=== PATIENT | male | born 1960 | race Caucasian/White ===

== ENCOUNTER 2018-06-25 16:35 | Emergency (ER) | END 2018-06-25 18:38 | disposition home or self-care (01) ==

== ENCOUNTER 2018-07-03 13:31 | Emergency (ER) | END 2018-07-03 14:12 | disposition home or self-care (01) ==

== ENCOUNTER 2018-09-06 17:46 | Emergency (ER) | payer SELFPAY ==
[~2018-09-06] VITALS: Ht 177.8 cm; Wt 104.5 kg
[~2018-09-06 17:46] MED LIST: CEPH-443 PO
[2018-09-06 18:00] VITALS: Ht 177.8 cm; Wt 104.5 kg
[2018-09-06] MEDS ORDERED: AZIT500T5 PO (20:16)
[2018-09-06 20:46] VITALS: BP 153/108; PULSE 98; RESP 16
--- NOTE | 2018-09-07 00:13 | ERD ---
ER Documentation Chief Complaint Chief Complaint SUDDEN NOSE BLEED X1 HOUR HPI 57-year-old man complains of right epistaxis times 1 hour, began spontaneously he denies trauma. Patient does have a history of obesity and hypertension and states he has had epistaxis in the past. Patient denies headache or blurry vision, no chest pain or shortness of breath, no dizziness or loss of consciousness. ROS All systems reviewed and are negative except as per history of present illness. Medications Home Meds Active Scripts Azithromycin* (Azithromycin*) 500 Mg Tablet, 500 MG PO DAILY, #3 TAB Prov:YESENIA PARTIDA MD 09/06/18 Discontinued Scripts Cephalexin* (Keflex*) 500 Mg Capsule, 500 MG PO QID for 7 Days, CAP Prov:EMILIE FREY PA-C 07/03/18 Allergies Allergies: Coded Allergies: No Known Allergy (Unverified , 07/03/18) PMhx/Soc Obesity, hypertension Medical and Surgical Hx: pt denies Surgical Hx History of Surgery: No Anesthesia Reaction: No Hx Neurological Disorder: No Hx Respiratory Disorders: No Hx Cardiac Disorders: Yes (HTN, HYPERCHOLESTEROLEMIA) Hx Psychiatric Problems: No Hx Miscellaneous Medical Probl: No Hx Alcohol Use: Yes (OCC) Hx Substance Use: No Hx Tobacco Use: No Smoking Status: Never smoker FmHx Family History: No diabetes Physical Exam Vitals Vital Signs Date Temp Pulse Resp B/P (MAP) Pulse Ox O2 O2 Flow FiO2 Time Delivery Rate 09/06/18 98 16 153/108 95 Room Air 20:46 (123) 09/06/18 99.0 98 20 177/100 97 Room Air 19:59 (125) 09/06/18 99.0 123 20 193/113 98 18:00 (139) Physical Exam GENERAL: Well-developed, well-nourished, well-hydrated, in no apparent distress, looks nontoxic in appearance HEENT: Moist mucous membranes, right naris epistaxis, pink conjunctive a NEURO: Alert and oriented 3, cranial nerves II through XII intact bilaterally, pupils equal round reactive to light, no focal deficits or facial asymmetry, sensation intact distally Strength 5/5 in upper and lower extremities bilaterally CARDIAC: Regular rate and rhythm, no murmurs rubs or gallops LUNGS: Clear bilaterally no wheezing crackles or stridor ABDOMEN: Soft nontender, no guarding, no rigidity, no rebound, no psoas sign no obturator sign. Normoactive bowel sounds SKIN: Warm and dry to touch, no abrasions, contusions, or hematomas, no lacerations, no ecchymosis, no target lesions, and without ulcers EXTREMITIES: No clubbing cyanosis or edema, calves are bilaterally symmetrical, no Homans sign, no popliteal cord sign. Distal pulses equal and bilateral PSYCH: Normal affect without agitation or irritability Result Diagram: 09/06/18192209/06/181922 Results 24 hrs Laboratory Tests Test 09/06/18 19:23 White Blood Count 8.3 10^3/ul Red Blood Count 5.25 10^6/ul Hemoglobin 15.7 g/dl Hematocrit 44.5 % Mean Corpuscular Volume 84.8 fl Mean Corpuscular Hemoglobin 29.9 pg Mean Corpuscular Hemoglobin Concent 35.3 g/dl Red Cell Distribution Width 12.6 % Platelet Count 292 10^3/UL Mean Platelet Volume 9.0 fl Immature Granulocytes % 0.200 % Neutrophils % 50.4 % Lymphocytes % 37.4 % Monocytes % 7.9 % Eosinophils % 3.0 % Basophils % 1.1 % Nucleated Red Blood Cells % 0.0 /100WBC Immature Granulocytes # 0.020 10^3/ul Neutrophils # 4.2 10^3/ul Lymphocytes # 3.1 10^3/ul Monocytes # 0.7 10^3/ul Eosinophils # 0.3 10^3/ul Basophils # 0.1 10^3/ul Nucleated Red Blood Cells # 0.0 10^3/ul Prothrombin Time 12.2 Sec Prothrombin Time Ratio 1.0 INR International Normalized Ratio 0.89 Activated Partial Thromboplast Time 31.5 Sec Sodium Level 142 mmol/L Potassium Level 3.9 mmol/L Chloride Level 107 mmol/L Carbon Dioxide Level 26 mmol/L Anion Gap 9 Blood Urea Nitrogen 18 mg/dl Creatinine 0.87 mg/dl Est Glomerular Filtrat Rate mL/min > 60 mL/min Glucose Level 128 mg/dl Calcium Level 9.5 mg/dl Total Bilirubin 0.2 mg/dl Direct Bilirubin 0.00 mg/dl Indirect Bilirubin 0.2 mg/dl Aspartate Amino Transf (AST/SGOT) 38 IU/L Alanine Aminotransferase (ALT/SGPT) 36 IU/L Alkaline Phosphatase 109 IU/L Total Protein 7.8 g/dl Albumin 4.4 g/dl Globulin 3.40 g/dl Albumin/Globulin Ratio 1.29 Lipase 54 U/L Current Medications Medications Dose Sig/Aminta Start Time Status Last (Trade) Ordered Route PRN Stop Time Admin Dose Reason Admin Clonidine 0.1 mg ONCE ONCE 09/06/18 DC 09/06/18 ([facility]) PO 19:00 19:01 09/06/18 19:01 Procedures/MDM I administered clonidine 0.1 mg p.o. for hypertension. Epistaxis was treated with balloon nasal tamponade to the right naris, patient tolerated procedure well and bleeding stopped. CBC and electrolytes are normal, liver function tests are normal, coagulation profile was normal Patient feels much better at this time, and vital signs are normal, symptoms have improved. I did give strict instructions to return to the ED if symptoms continue or worsen, patient will otherwise follow-up with primary care phys ician. Patient understood instructions and agreed to plan. Disclaimer: Inadvertent spelling and grammatical errors are likely due to EHR/dictation software use and do not reflect on the overall quality of patient care. Also, please note that the electronic time recorded on this note does not necessarily reflect the actual time of the patient encounter. Departure Diagnosis: Primary Impression: Epistaxis Additional Impression: Hypertension Hypertension type: essential hypertension Qualified Codes: I10 - Essential (primary) hypertension Condition: Good Patient Instructions: Epistaxis (Adult), Hypertension, Established YESENIA PARTIDA MD Sep 07, 2018 00:13
== END 2018-09-06 20:48 | disposition home or self-care (01) ==
LOC: E/R 17:46
DX: R04.0 Epistaxis (principal); R40.2142 Coma scale, eyes open, spontaneous, at arrival to emergency department; R40.2362 Coma scale, best motor response, obeys commands, at arrival to emergency department; R40.2252 Coma scale, best verbal response, oriented, at arrival to emergency department; I10 Essential (primary) hypertension; E66.9 Obesity, unspecified; Z68.33 Body mass index [BMI] 33.0-33.9, adult
CPT/HCPCS: 80053; 83690; 85025; 85610; 85730; 99283